=== PATIENT | female | born 2005 ===

== ENCOUNTER 2024-07-05 22:56 | Emergency (ER) | payer BC, OTHER | END 2024-07-06 00:14 | disposition home or self-care (01) | LOC: LL.ED 22:56 | DX: S93.402A Sprain of unspecified ligament of left ankle, initial encounter (principal); Z88.0 Allergy status to penicillin; Z79.899 Other long term (current) drug therapy; X58.XXXA Exposure to other specified factors, initial encounter | CPT/HCPCS: 73610-LT; 81025; 99283 ==